=== PATIENT | female | born 1985 | race Caucasian/White ===

== ENCOUNTER 2017-04-01 16:23 | Emergency (ER) | payer MEDICAID ==
--- NOTE | 2017-04-01 16:33 | NUR ---
CALLED IN [place]- NO ANSWER
--- NOTE | 2017-04-01 16:43 | NUR ---
CALLED IN [place]- NO ANSWER
== END 2017-04-01 17:25 | disposition left against medical advice (07) ==
LOC: ER 16:25
DX: Z53.21 Procedure and treatment not carried out due to patient leaving prior to being seen by health care provider (principal)